=== PATIENT | male | born 1955 | race Caucasian/White ===

== ENCOUNTER 2025-01-13 09:32 | Outpatient (CLI) | payer OTHER, SELFPAY ==
--- NOTE | 2025-01-13 11:43 | P.ANES_ITS ---
Anesthesia Charges Start Date/Time Anesthesia Start Date: 01/13/25 Anesthesia Start Time: 11:13 Stop Date/Time Anesthesia Stop Date: 01/13/25 Anesthesia Stop Time: 11:39 Coding CPT Codes CPT Codes: ANES LWR INTST SCR COLSC - [id number] ([id number]) P3 - PATIENT W/SEVERE SYS DISEASE, QK - AUXILIARY PLANT OPERATOR 2-4 CNCRNT ANES PROC, QX - PURCHASING AND FISCAL CLERK SVC W/ MD MED DIRECTION
--- NOTE | 2025-01-13 11:43 | W.ANESCHARGE ---
Anesthesia Charges Start Date/Time Anesthesia Start Date: 01/13/25 Anesthesia Start Time: 11:13 Stop Date/Time Anesthesia Stop Date: 01/13/25 Anesthesia Stop Time: 11:39 Coding CPT Codes CPT Codes: ANES LWR INTST SCR COLSC - [id number] ([id number]) P3 - PATIENT W/SEVERE SYS DISEASE, QK - ANIMAL BEHAVIOURIST 2-4 CNCRNT ANES PROC, QX - INJURY PREVENTION COORDINATOR SVC W/ MD MED DIRECTION
--- NOTE | 2025-01-13 11:44 | P.ANES_ITS ---
Anesthesia Charges Start Date/Time Anesthesia Start Date: 01/13/25 Anesthesia Start Time: 11:13 Stop Date/Time Anesthesia Stop Date: 01/13/25 Anesthesia Stop Time: 11:39 Coding CPT Codes CPT Codes: ANES LWR INTST SCR COLSC - [id number] ([id number]) QK - MUSEUM ARCHIVIST 2-4 CNCRNT ANES PROC, QX - EMULSION OPERATOR SVC W/ MED DIRECTION, P3 - PATIENT W/SEVERE SYS DISEASE
--- NOTE | 2025-01-13 11:44 | W.ANESCHARGE ---
Anesthesia Charges Start Date/Time Anesthesia Start Date: 01/13/25 Anesthesia Start Time: 11:13 Stop Date/Time Anesthesia Stop Date: 01/13/25 Anesthesia Stop Time: 11:39 Coding CPT Codes CPT Codes: ANES LWR INTST SCR COLSC - [id number] ([id number]) QK - VENEER DRIER TAILER 2-4 CNCRNT ANES PROC, QX - LITHODUPLICATOR OPERATOR SVC W/ MED DIRECTION, P3 - PATIENT W/SEVERE SYS DISEASE
== END 2025-01-13 09:33 | disposition home or self-care (01) ==
LOC: OP CLINIC 09:34
PROVIDERS: PCP Family Medicine; Visit Provider Internal Medicine Gastroenterology
DX: Z12.11 Encounter for screening for malignant neoplasm of colon (principal); K64.8 Other hemorrhoids; K57.30 Diverticulosis of large intestine without perforation or abscess without bleeding; Z86.0101 Personal history of adenomatous and serrated colon polyps
CPT/HCPCS: 00812; 45378; J2704